=== PATIENT | female | born 1975 | race Caucasian/White ===

== ENCOUNTER 2021-01-19 12:02 | Emergency (ER) | payer SELFPAY | END 2021-01-19 12:59 | disposition left against medical advice (07) | LOC: ER 12:05 | DX: R06.02 Shortness of breath (principal) ==

== ENCOUNTER 2022-01-02 11:06 | Emergency (ER) | payer MEDICAID ==
[~2022-01-02] VITALS: Ht 160 cm; Wt 54.4 kg
--- NOTE | 2022-01-02 11:47 | ED General ---
General Stated Complaint: CHILLS/FATIGUE/HAIR FALLING OUT/IRR HEART RATE Source of Information: Patient Exam Limitations: No Limitations History of Present Illness Date Seen by Provider: Jan 02, 2022 Time Seen by Provider: 11:28 Initial Comments Patient is a 46-year-old otherwise healthy female who presents to the emergency department today with a chief complaint of feeling increased fatigue and weakness over the course of the last 2 weeks, profound chilling/feeling perpetually cold, hair falling out in clumps and very slow heart rate. Patient states last night she felt like her heartbeat was very very slow she became more concerned and decided to come to the emergency room this morning for evaluation. She does not currently have a primary care doctor if she is waiting for insurance to kick in as of January 21. She denies any recent fevers, chills, URI symptoms. She is COVID vaccinated, Moderna, second shot was in September 2021. No known Covid positive contacts recently. She states she feels like her breasts are a little "shallow". Not necessarily short of breath. No chest pain, no abdominal pain, nausea vomiting or diarrhea. She states she still has 1 bowel movement a day whereas normally she might have 2. No black or bloody s tools. No blood in her urine. No abnormal vaginal discharge. She is status post partial hysterectomy, ovaries were left. She was told by a provider about a year ago that she was in menopause. She does not take any kvnu-gxy-lbbaclv supplements. She does use a protein powder daily that she has been on for 5 years. She thinks her father has a history of some thyroid disease. All other review of systems reviewed and negative except as stated Timing/Duration: Other (2 weeks) Severity: Moderate Associated Systoms: Malaise, Weakness Allergies and Home Medications Allergies Coded Allergies: Sulfa (Sulfonamide Antibiotics) (Verified Allergy, Unknown, 01/02/22) Patient Home Medication List Home Medication List Reviewed: Yes Review of Systems Review of Systems Constitutional: chills (feels "cold") EENTM: no symptoms reported Respiratory: no symptoms reported Cardiovascular: no symptoms reported Gastrointestinal: no symptoms reported Genitourinary: no symptoms reported : No (Hyst) Musculoskeletal: no symptoms reported Skin: change in hair/nails ("hair is falling out in clumps"); No dryness, No pruritus, No rash Psychiatric/Neurological: Anxiety (about health) All Other Systems Reviewed Negative Unless Noted: Yes Physical Exam Vital Signs Vital Signs - First Documented 01/02/22 11:19 Pulse 75 Resp 16 B/P (MAP) 122/90 (101) Pulse Ox 99 O2 Delivery Room Air Capillary Refill : Height, Weight, BMI Height: '" Weight: lbs. oz. kg; BMI Method: General Appearance: No Apparent Distress, WD/WN, Thin Eyes: Bilateral Eye Normal Inspection, Bilateral Eye PERRL, Bilateral Eye EOMI HEENT: PERRL/EOMI, Pharynx Normal, Moist Mucous Membranes Neck: Full Range of Motion, Normal Inspection, Non Tender, Supple (no appreciable thyroid masses) Respiratory: Lungs Clear (100% room air), Normal Breath Sounds, No Accessory Muscle Use, No Respiratory Distress Cardiovascular: Regular Rate, Rhythm Gastrointestinal: Normal Bowel Sounds, Non Tender, Soft Extremity: Normal Capillary Refill, Normal Inspection, Normal Range of Motion, Non Tender, No Calf Tenderness, No Pedal Edema (no pre-tibial edema) Neurologic/Psychiatric: Alert, Oriented x3, No Motor/Sensory Deficits, Normal Mood/Affect, diagnostic cardiac sonographer II-XII Norm as Tested Skin: Normal Color, Warm/Dry, Other (no skin texture changes, rashes) Progress/Results/Core Measures Suspected Sepsis SIRS Temperature: Pulse: Respiratory Rate: Laboratory Tests 01/02/22 12:09: White Blood Count 3.7L Blood Pressure / Mean: Laboratory Tests 01/02/22 12:09: Creatinine 0.64, Platelet Count 205, Total Bilirubin 0.7 Results/Orders Lab Results Laboratory Tests Test 01/02/22 12:09 Range/Units White Blood Count 3.7 L 4.3-11.0 10^3/uL Red Blood Count 4.71 3.80-5.11 10^6/uL Hemoglobin 12.9 11.5-16.0 g/dL Hematocrit 39 35-52 % Mean Corpuscular Volume 83 80-99 fL Mean Corpuscular Hemoglobin 27 25-34 pg Mean Corpuscular Hemoglobin Concent 33 32-36 g/dL Red Cell Distribution Width 12.4 10.0-14.5 % Platelet Count 205 130-400 10^3/uL Mean Platelet Volume 10.7 9.0-12.2 fL Immature Granulocyte % (Auto) 0 % Neutrophils (%) (Auto) 57 42-75 % Lymphocytes (%) (Auto) 33 12-44 % Monocytes (%) (Auto) 8 0-12 % Eosinophils (%) (Auto) 2 0-10 % Basophils (%) (Auto) 1 0-10 % Neutrophils # (Auto) 2.1 1.8-7.8 10^3/uL Lymphocytes # (Auto) 1.2 1.0-4.0 10^3/uL Monocytes # (Auto) 0.3 0.0-1.0 10^3/uL Eosinophils # (Auto) 0.1 0.0-0.3 10^3/uL Basophils # (Auto) 0.0 0.0-0.1 10^3/uL Immature Granulocyte # (Auto) 0.0 0.0-0.1 10^3/uL Sodium Level 139 135-145 MMOL/L Potassium Level 4.2 3.6-5.0 MMOL/L Chloride Level 106 98-107 MMOL/L Carbon Dioxide Level 23 21-32 MMOL/L Anion Gap 10 5-14 MMOL/L Blood Urea Nitrogen 5 L 7-18 MG/DL Creatinine 0.64 0.60-1.30 MG/DL Estimat Glomerular Filtration Rate 112 BUN/Creatinine Ratio 8 Glucose Level 100 70-105 MG/DL Calcium Level 9.2 8.5-10.1 MG/DL Corrected Calcium 9.0 8.5-10.1 MG/DL Total Bilirubin 0.7 0.1-1.0 MG/DL Aspartate Amino Transf (AST/SGOT) 15 5-34 U/L Alanine Aminotransferase (ALT/SGPT) 9 0-55 U/L Alkaline Phosphatase 59 40-136 U/L C-Reactive Protein High Sensitivity 0.14 0.00-0.50 MG/DL Total Protein 7.5 6.4-8.2 GM/DL Albumin 4.3 3.2-4.5 GM/DL Thyroid Stimulating Hormone (TSH) 0.14 L 0.35-4.94 UIU/ML Free Thyroxine 0.87 0.70-1.48 NG/DL My Orders Orders - CAMRYN VILLAVICENCIO MD Cbc With Automated Diff (01/02/22 11:42) Comprehensive Metabolic Panel (01/02/22 11:42) Thyroid Stimulating Hormone (01/02/22 11:42) Triiodothryonine T3 Free (01/02/22 11:42) Free T4 (Free Thyroxine) (01/02/22 11:42) Hs C Reactive Protein (01/02/22 11:42) Vital Signs/I&O 01/02/22 11:19 Pulse 75 Resp 16 B/P (MAP) 122/90 (101) Pulse Ox 99 O2 Delivery Room Air Capillary Refill : Progress Note : Time: 14:11 Progress Note Patient seen and evaluated, basic laboratory studies including thyroid functio obtained. All of her labs are within normal limits, free T3 is a send out lab. I do not expect that to be elevated indicating hyperthyroidism. Based on her clinical complaints. I had a long discussion with the patient regarding recent stressors which may be contributing to depressive symptoms causing her feelings of "coldness", fatigue, weakness and generalized malaise. She has had quite a stressful last year and a half moving several of her 7 kids and herself from [place]. She is quite unhappy with her job currently, her children are moving out her youngest one is 19 and just about to buy a house and move out on his own as well. She laments not having a social network, close friend group, activities to enjoy. She is not as happy with her move as she had hoped she would be. She is planning on a follow-up appointment to further investigate the symptoms with her primary care after January 21. I have advised her to take some gnau-qay-udnlpov biotin for her hair loss as well as some B vitamins. Recommended good nutrition and hydration. Advised her to allow herself some nando as she is probably still transitioning and acclimating to this environment versus [place]. She seems very grateful for the "ear". All questions are sought and answered. Patient is stable for discharge. Departure Impression Primary Impression: Cold intolerance Additional Impression: Malaise Disposition: 01 HOME, SELF-CARE Condition: Stable Departure-Patient Inst. Decision time for Depature: 14:13 Referrals: NO,LOCAL PHYSICIAN (PCP/Family) Primary Care Physician Patient Instructions: LOCAL PHYSICIAN LIST Add. Discharge Instructions: Drink plenty of fluids and get good nutrition to help with hair loss. You might consider supplementing with a good B complex vitamin as well as some biotin. Follow-up with your primary care physician, go ahead and make an appointment as it may take some time once you get your insurance to get that scheduled. Return to the emergency room for any new, concerning or emergent complaints. CAMRYN VILLAVICENCIO MD Jan 02, 2022 11:47
[2022-01-02 12:24] LABS: BASOPHILS % (AUTO) 1 % (0-10); EOSINOPHILS # (AUTO) 0.1 10^3/uL (0.0-0.3); EOSINOPHILS % (AUTO) 2 % (0-10); HEMATOCRIT 39 % (35-52); HEMOGLOBIN 12.9 g/dL (11.5-16.0); LYMPHOCYTES # (AUTO) 1.2 10^3/uL (1.0-4.0); LYMPHOCYTES % (AUTO) 33 % (12-44); MEAN CORPUSCULAR HEMOGLOBIN 27 pg (25-34); MEAN CORPUSCULAR HGB CONC 33 g/dL (32-36); MEAN CORPUSCULAR VOLUME 83 fL (80-99); MEAN PLATELET VOLUME 10.7 fL (9.0-12.2); MONOCYTES # (AUTO) 0.3 10^3/uL (0.0-1.0); MONOCYTES % (AUTO) 8 % (0-12); NEUTROPHILS # (AUTO) 2.1 10^3/uL (1.8-7.8); NEUTROPHILS % (AUTO) 57 % (42-75); PLATELET COUNT 205 10^3/uL (130-400); WHITE BLOOD COUNT 3.7 10^3/uL (4.3-11.0)
[2022-01-02 12:35] LABS: ALBUMIN 4.3 GM/DL (3.2-4.5)
[2022-01-02 12:36] LABS: POTASSIUM 4.2 MMOL/L (3.6-5.0)
[2022-01-02 12:37] LABS: CALCIUM 9.2 MG/DL (8.5-10.1)
[2022-01-02 12:38] LABS: TOTAL PROTEIN 7.5 GM/DL (6.4-8.2)
[2022-01-02 12:40] LABS: BILIRUBIN,TOTAL 0.7 MG/DL (0.1-1.0)
[2022-01-02 12:42] LABS: CREATININE SERUM 0.64 MG/DL (0.60-1.30)
[2022-01-02 13:05] LABS: FREE T4 (FREE THYROXINE) 0.87 NG/DL (0.70-1.48)
[2022-01-02 14:50] VITALS: BP 118/70
== END 2022-01-02 14:50 | disposition home or self-care (01) ==
LOC: EDUNIT# 11:06 → ER 11:11
DX: T69.9XXA Effect of reduced temperature, unspecified, initial encounter (principal); R53.81 Other malaise; R53.1 Weakness; X31.XXXA Exposure to excessive natural cold, initial encounter
CPT/HCPCS: 36415; 80053; 84439; 84443; 84481; 85025; 86141; 99281

== ENCOUNTER 2022-05-11 08:26 | Emergency (ER) | payer MEDICAID ==
[~2022-05-11] VITALS: Ht 160 cm; Wt 52.2 kg
[2022-05-11 08:35] VITALS: BP 120/97
--- NOTE | 2022-05-11 08:57 | ED General ---
General Chief Complaint: General Problems/Pain Stated Complaint: FEELS COLD, FATIGUE, HAIRS FALLING OUT Nursing Triage Note: pt c/o fatige and cold- no n/v/d- going on 1 week Source of Information: Patient Exam Limitations: No Limitations History of Present Illness Date Seen by Provider: May 11, 2022 Time Seen by Provider: 08:44 Initial Comments Patient is a 46-year-old female who presents to the emergency department today with a chief complaint of feeling very fatigued and tired over the course of the last week with feeling very "cold" over the last 3 days. Patient states that she has not really had chills or fever. She feels a little short of breath secondary to her fatigue. She denies any sick contacts, she is COVID vaccinated with 1 booster. No runny nose, sore throat or earache. No chest pain. No productive cough. No abdominal pain, nausea, vomiting, diarrhea or urinary complaints. No swelling in her legs. Patient recently moved to [facility] does not have a local physician, her doctor is out in [place]. She does take "PHTHALIC ACID PURIFIER thyroid" at 90 mcg for hypothyroidism and has since she was a teenager. She states that she has not missed or skipped any doses. She is concerned about the storage of her thyroid hormone since her move. All other review of systems reviewed and negative except as stated Timing/Duration: 1 Week Severity: Moderate Associated Systoms: Malaise Allergies and Home Medications Allergies Coded Allergies: Sulfa (Sulfonamide Antibiotics) (Verified Allergy, Unknown, 01/02/22) Patient Home Medication List Home Medication List Reviewed: Yes Review of Systems Review of Systems Constitutional: see HPI EENTM: no symptoms reported Respiratory: short of breath Cardiovascular: no symptoms reported Gastrointestinal: no symptoms reported Genitourinary: no symptoms reported : No Musculoskeletal: no symptoms reported Skin: no symptoms reported Psychiatric/Neurological: No Symptoms Reported Hematologic/Lymphatic: Other (feels "cold") All Other Systems Reviewed Negative Unless Noted: Yes Past Fmkqeap-[id number]-Rumzdt Hx Patient Social History Tobacco Use?: No Substance use?: No Alcohol Use?: No Past Medical History Surgery/Hospitalization HX: appendix, heart ablation Physical Exam Vital Signs Vital Signs - First Documented 05/11/22 08:35 Temp 36.6 Pulse 72 Resp 20 B/P (MAP) 120/97 (105) Pulse Ox 100 O2 Delivery Room Air Capillary Refill : Height, Weight, BMI Height: '" Weight: lbs. oz. kg; 20.00 BMI Method: General Appearance: No Apparent Distress, WD/WN Eyes: Bilateral Eye Normal Inspection, Bilateral Eye PERRL, Bilateral Eye EOMI HEENT: PERRL/EOMI, TMs Normal, Pharynx Normal, Moist Mucous Membranes Neck: Normal Inspection, Non Tender, Supple Respiratory: Lungs Clear, Normal Breath Sounds, No Accessory Muscle Use, No Respiratory Distress Cardiovascular: Regular Rate, Rhythm, Normal Peripheral Pulses Gastrointestinal: Non Tender, Soft Extremity: Normal Capillary Refill, Normal Inspection, Non Tender, No Calf Tenderness, No Pedal Edema Neurologic/Psychiatric: Alert, Oriented x3, No Motor/Sensory Deficits, Normal Mood/Affect Skin: Normal Color, Warm/Dry Progress/Results/Core Measures Suspected Sepsis SIRS Temperature: Pulse: 72 Respiratory Rate: 20 Laboratory Tests 05/11/22 09:04: White Blood Count 4.1L Blood Pressure 120 /97 Mean: 105 Laboratory Tests 05/11/22 09:04: Creatinine 0.71, Platelet Count 172, Total Bilirubin 0.6 Results/Orders Lab Results Laboratory Tests Test 05/11/22 09:04 05/11/22 10:39 05/11/22 10:44 Range/Units White Blood Count 4.1 L 4.3-11.0 10^3/uL Red Blood Count 4.51 3.80-5.11 10^6/uL Hemoglobin 12.7 11.5-16.0 g/dL Hematocrit 37 35-52 % Mean Corpuscular Volume 83 80-99 fL Mean Corpuscular Hemoglobin 28 25-34 pg Mean Corpuscular Hemoglobin Concent 34 32-36 g/dL Red Cell Distribution Width 12.4 10.0-14.5 % Platelet Count 172 130-400 10^3/uL Mean Platelet Volume 10.6 9.0-12.2 fL Immature Granulocyte % (Auto) 0 % Neutrophils (%) (Auto) 54 42-75 % Lymphocytes (%) (Auto) 35 12-44 % Monocytes (%) (Auto) 7 0-12 % Eosinophils (%) (Auto) 4 0-10 % Basophils (%) (Auto) 1 0-10 % Neutrophils # (Auto) 2.2 1.8-7.8 10^3/uL Lymphocytes # (Auto) 1.4 1.0-4.0 10^3/uL Monocytes # (Auto) 0.3 0.0-1.0 10^3/uL Eosinophils # (Auto) 0.2 0.0-0.3 10^3/uL Basophils # (Auto) 0.0 0.0-0.1 10^3/uL Immature Granulocyte # (Auto) 0.0 0.0-0.1 10^3/uL Sodium Level 140 135-145 MMOL/L Potassium Level 4.3 3.6-5.0 MMOL/L Chloride Level 104 98-107 MMOL/L Carbon Dioxide Level 25 21-32 MMOL/L Anion Gap 11 5-14 MMOL/L Blood Urea Nitrogen 10 7-18 MG/DL Creatinine 0.71 0.60-1.30 MG/DL Estimat Glomerular Filtration Rate 107 BUN/Creatinine Ratio 14 Glucose Level 91 70-105 MG/DL Calcium Level 9.3 8.5-10.1 MG/DL Corrected Calcium 9.1 8.5-10.1 MG/DL Total Bilirubin 0.6 0.1-1.0 MG/DL Aspartate Amino Transf (AST/SGOT) 13 5-34 U/L Alanine Aminotransferase (ALT/SGPT) 16 0-55 U/L Alkaline Phosphatase 51 40-136 U/L Total Protein 7.1 6.4-8.2 GM/DL Albumin 4.3 3.2-4.5 GM/DL Thyroid Stimulating Hormone (TSH) 3.37 0.35-4.94 UIU/ML Free Thyroxine 0.71 0.70-1.48 NG/DL SARS-CoV-2 RNA (RT-PCR) Detected H Not Detecte D-Dimer <= 0.27 0.00-0.49 UG/ML My Orders Orders - CAMRYN VILLAVICENCIO MD Cbc With Automated Diff (05/11/22 08:54) Comprehensive Metabolic Panel (05/11/22 08:54) Thyroid Stimulating Hormone (05/11/22 08:54) Free T4 (Free Thyroxine) (05/11/22 08:54) Covid 19 Inhouse Test (05/11/22 10:28) Fibrin Degradation Products (05/11/22 10:28) Isolation Central Supply Req (05/11/22 10:28) Vital Signs/I&O 05/11/22 08:35 Temp 36.6 Pulse 72 Resp 20 B/P (MAP) 120/97 (105) Pulse Ox 100 O2 Delivery Room Air Capillary Refill : Blood Pressure Mean: 105 Progress Note #1: Time: 10:30 Progress Note Reevaluated the patient after initial labs had returned, they are normal, she is not anemic, her thyroid function is normal. Renal function liver function normal. She has no elevated white count. Vital signs are also reevaluated, her heart rate is normal in the 60s. Her oxygen is 99% on room air. Patient is concerned about a possible blood clot in her lungs secondary to all of her recent travel over the last couple of months back and forth from [place] to [place]. She adds that she is quite short of breath with daily activities and fatigue. She has no history of blood clot. I have tried to reassure her and offered a D-dimer to further screen for possible thromboembolism. We will also add a COVID test. Disposition after these studies are completed. (per review of the medical record, I saw her for very similar complaints back in Dec of this year with a negative work up) Progress Note #2: Time: 11:33 Progress Note D-dimer is negative, COVID test is positive. Patient is counseled on qu arantining criteria. I believe she is probably at the end of her illness as she has been symptomatic for greater than a week. She does not meet criteria for any type of treatment at this point. Her vital signs are stable. She has no ongoing complaints of chest pain or shortness of breath at rest. Oxygen is 96% on room air. All questions are sought and answered. Patient is stable for discharge. Departure Impression Primary Impression: COVID-19 Disposition: 01 HOME, SELF-CARE Condition: Stable Departure-Patient Inst. Decision time for Depature: 11:34 Referrals: [facility] [place] NO,LOCAL PHYSICIAN (PCP) Primary Care Physician Patient Instructions: COVID-19 (DC) Add. Discharge Instructions: Drink plenty of fluids to stay well-hydrated. Continue to monitor your symptoms if you have worsening shortness of breath, cough or high fever return to the emergency room for reevaluation. Follow-up with a primary care provider within the next month. You will need to mask a total of 10 days after symptom onset. CAMRYN VILLAVICENCIO MD May 11, 2022 08:57
[2022-05-11 09:08] LABS: BASOPHILS % (AUTO) 1 % (0-10); EOSINOPHILS # (AUTO) 0.2 10^3/uL (0.0-0.3); EOSINOPHILS % (AUTO) 4 % (0-10); HEMATOCRIT 37 % (35-52); HEMOGLOBIN 12.7 g/dL (11.5-16.0); LYMPHOCYTES # (AUTO) 1.4 10^3/uL (1.0-4.0); LYMPHOCYTES % (AUTO) 35 % (12-44); MEAN CORPUSCULAR HEMOGLOBIN 28 pg (25-34); MEAN CORPUSCULAR HGB CONC 34 g/dL (32-36); MEAN CORPUSCULAR VOLUME 83 fL (80-99); MEAN PLATELET VOLUME 10.6 fL (9.0-12.2); MONOCYTES # (AUTO) 0.3 10^3/uL (0.0-1.0); MONOCYTES % (AUTO) 7 % (0-12); NEUTROPHILS # (AUTO) 2.2 10^3/uL (1.8-7.8); NEUTROPHILS % (AUTO) 54 % (42-75); PLATELET COUNT 172 10^3/uL (130-400); WHITE BLOOD COUNT 4.1 10^3/uL (4.3-11.0)
[2022-05-11 09:19] LABS: ALBUMIN 4.3 GM/DL (3.2-4.5)
[2022-05-11 09:20] LABS: POTASSIUM 4.3 MMOL/L (3.6-5.0)
[2022-05-11 09:21] LABS: CALCIUM 9.3 MG/DL (8.5-10.1)
[2022-05-11 09:22] LABS: TOTAL PROTEIN 7.1 GM/DL (6.4-8.2)
[2022-05-11 09:24] LABS: BILIRUBIN,TOTAL 0.6 MG/DL (0.1-1.0)
[2022-05-11 09:26] LABS: CREATININE SERUM 0.71 MG/DL (0.60-1.30)
[2022-05-11 09:50] LABS: FREE T4 (FREE THYROXINE) 0.71 NG/DL (0.70-1.48)
== END 2022-05-11 11:50 | disposition home or self-care (01) ==
LOC: EDUNIT# 08:26 → ER 08:31
DX: U07.1 COVID-19 (principal)
CPT/HCPCS: 36415; 80053; 84439; 84443; 85025; 85379; 87636; 99283

== ENCOUNTER 2022-07-15 09:02 | Emergency (ER) | payer MEDICAID ==
[~2022-07-15] VITALS: Ht 160 cm; Wt 52.2 kg
--- NOTE | 2022-07-15 10:01 | ED Cardiac General ---
History of Present Illness General Chief Complaint: Cardiac/General Problems Stated Complaint: HEART PALPITATIONS, SHORTNESS OF BREATH, FATIGUE Nursing Triage Note: PT AMB TO RM 6 WITH C/O FEELING HEART PALPITATIONS LATELY AND FEELING MORE FATIGUED. PT STATES SHE ALSO FEELS COLD ALL THE TIME Source: patient Exam Limitations: no limitations History of Present Illness Date Seen by Provider: Jul 15, 2022 Time Seen by Provider: 09:30 Initial Comments Patient to the ER by private conveyance chief complaint that he was loading up her car at [employer] to her home to [place] and she started having a palpitation that was a low-speed, thumping pulsating in her chest feeling that her neck veins were distended. She says she has had these a couple times a day for the past 4 days. She has a history of Tbmxj-Dfnjfbkhp-Qgnhm status post ablation in 2009. She does not follow with a hvac refrigeration technician. She has a primary care doctor in [place]. She is hypothyroid on Synthroid. She just wanted to make sure that she was safe to go home. She is not having any chest pain nausea vomiting fevers chills cough shortness of air. She had COVID in November/December and has had some issues since then with fatigue and malaise. She has not had a TSH checked with her primary care doctor since then. Allergies and Home Medications Allergies Coded Allergies: Sulfa (Sulfonamide Antibiotics) (Verified Allergy, Unknown, 01/02/22) Patient Home Medication List Home Medication List Reviewed: Yes Levothyroxine Sodium (Levothyroxine Sodium) 100 Mcg Tablet, 100 MCG PO DAILY Prescribed by: DOYLE SINGH on 07/15/22 1223 Review of Systems Review of Systems Constitutional: No chills, No diaphoresis EENTM: No Blurred Vision, No Double Vision Respiratory: Denies Cough, Denies Shortness of Air Cardiovascular: Denies Chest Pain, Denies Edema Gastrointestinal: Denies Abdomen Distended, Denies Abdominal Pain Genitourinary: Denies Burning, Denies Discharge Musculoskeletal: No back pain, No joint pain Skin: No pruritus, No rash Psychiatric/Neurological: Denies Headache, Denies Numbness All Other Systems Reviewed Negative Unless Noted: Yes Past Hqfjmlg-Opcpzy-Dvhszc Hx Patient Social History Tobacco Use?: No Use of E-Cig and/or Vaping dev: No Substance use?: No Alcohol Use?: No Pt feels they are or have been: No Immunizations Up To Date Influenza Vaccine Up-to-Date: No; Not Current First/Initial COVID19 Vaccinat: YES Second COVID19 Vaccination Quang: YES Third COVID19 Vaccination Date: YES COVID19 Vaccine Pm Technician: UNKNOWN Past Medical History Surgery/Hospitalization HX: appendix, heart ablation, HYPOTHYROID, COVID- NOV 2021 Physical Exam Vital Signs Vital Signs - First Documented 07/15/22 09:13 Temp 36.6 Pulse 62 Resp 16 B/P (MAP) 133/90 (104) Capillary Refill : Height, Weight, BMI Height: '" Weight: lbs. oz. kg; 20.00 BMI Method: General Appearance: No Apparent Distress, WD/WN HEENT: PERRL/EOMI, Pharynx Normal, Moist Mucous Membranes Neck: Full Range of Motion, Normal Inspection Respiratory: Lungs Clear, Normal Breath Sounds, No Accessory Muscle Use, No Respiratory Distress Cardiovascular: Regular Rate, Rhythm, No Edema, No Murmur, Normal Peripheral Pulses Extremity: Normal Capillary Refill, Normal Inspection, No Pedal Edema Neurologic/Psychiatric: Alert, Oriented x3, Normal Mood/Affect Skin: Normal Color, Warm/Dry Progress/Results/Core Measures Results/Orders Lab Results Laboratory Tests Test 07/15/22 10:15 07/15/22 10:27 Range/Units Urine Color YELLOW Urine Clarity CLEAR Urine pH 8.0 5-9 Urine Specific [place] 1.010 L 1.016-1.022 Urine Protein NEGATIVE NEGATIVE Urine Glucose (UA) NEGATIVE NEGATIVE Urine Ketones NEGATIVE NEGATIVE Urine Nitrite NEGATIVE NEGATIVE Urine Bilirubin NEGATIVE NEGATIVE Urine Urobilinogen 0.2 < = 1.0 MG/DL Urine Leukocyte Esterase 1+ H NEGATIVE Urine RBC (Auto) NEGATIVE NEGATIVE Urine RBC NONE /HPF Urine WBC 0-2 /HPF Urine Squamous Epithelial Cells RARE /HPF Urine Crystals NONE /LPF Urine Bacteria MODERATE H /HPF Urine Casts NONE /LPF Urine Mucus NEGATIVE /LPF Urine Culture Indicated YES White Blood Count 3.7 L 4.3-11.0 10^3/uL Red Blood Count 4.34 3.80-5.11 10^6/uL Hemoglobin 12.1 11.5-16.0 g/dL Hematocrit 36 35-52 % Mean Corpuscular Volume 83 80-99 fL Mean Corpuscular Hemoglobin 28 25-34 pg Mean Corpuscular Hemoglobin Concent 33 32-36 g/dL Red Cell Distribution Width 12.1 10.0-14.5 % Platelet Count 165 130-400 10^3/uL Mean Platelet Volume 10.2 9.0-12.2 fL Immature Granulocyte % (Auto) 0 % Neutrophils (%) (Auto) 53 42-75 % Lymphocytes (%) (Auto) 36 12-44 % Monocytes (%) (Auto) 7 0-12 % Eosinophils (%) (Auto) 3 0-10 % Basophils (%) (Auto) 2 0-10 % Neutrophils # (Auto) 1.9 1.8-7.8 10^3/uL Lymphocytes # (Auto) 1.3 1.0-4.0 10^3/uL Monocytes # (Auto) 0.2 0.0-1.0 10^3/uL Eosinophils # (Auto) 0.1 0.0-0.3 10^3/uL Basophils # (Auto) 0.1 0.0-0.1 10^3/uL Immature Granulocyte # (Auto) 0.0 0.0-0.1 10^3/uL Sodium Level 140 135-145 MMOL/L Potassium Level 3.8 3.6-5.0 MMOL/L Chloride Level 105 98-107 MMOL/L Carbon Dioxide Level 27 21-32 MMOL/L Anion Gap 8 5-14 MMOL/L Blood Urea Nitrogen 12 7-18 MG/DL Creatinine 0.68 0.60-1.30 MG/DL Estimat Glomerular Filtration Rate 110 BUN/Creatinine Ratio 18 Glucose Level 94 70-105 MG/DL Calcium Level 9.0 8.5-10.1 MG/DL Corrected Calcium 9.1 8.5-10.1 MG/DL Magnesium Level 2.1 1.6-2.4 MG/DL Total Bilirubin 0.3 0.1-1.0 MG/DL Aspartate Amino Transf (AST/SGOT) 26 5-34 U/L Alanine Aminotransferase (ALT/SGPT) 27 0-55 U/L Alkaline Phosphatase 50 40-136 U/L Total Protein 6.7 6.4-8.2 GM/DL Albumin 3.9 3.2-4.5 GM/DL Thyroid Stimulating Hormone (TSH) 5.67 H 0.35-4.94 UIU/ML Free Thyroxine 0.63 L 0.70-1.48 NG/DL My Orders Orders - DOYLE SINGH Continuous Ekg Monitoring (07/15/22 09:09) Ekg Tracing (07/15/22 09:09) Ua Culture If Indicated (07/15/22 09:48) Urine Bedside (07/15/22 09:48) Cbc With Automated Diff (07/15/22 10:02) Comprehensive Metabolic Panel (07/15/22 10:02) Thyroid Stimulating Hormone (07/15/22 10:02) Magnesium (07/15/22 10:02) Free T4 (Free Thyroxine) (07/15/22 10:17) Urine Culture (07/15/22 10:15) Vital Signs/I&O 07/15/22 09:13 Temp 36.6 Pulse 62 Resp 16 B/P (MAP) 133/90 (104) Blood Pressure Mean: 104 Progress Progress Note #1: Time: 11:09 Progress Note EKG unremarkable, heart rate in the 60s but no dysrhythmia noted. We will keep her on the monitor and check some labs including TSH and free T4. If these things are okay we can give her a referral on to cardiology for follow-up since she does not follow with a hvac refrigeration technician anymore. Progress Note #2: Time: 12:20 Progress Note She is on 90 mcg of Synthroid so were going to increase her to 100 mcg. She states she takes it religiously. We will give her a referral on to cardiology for follow-up and encouraged her to follow-up with primary care in a month or 2 to repeat labs as necessary. Initial ECG Impression Date: Jul 15, 2022 Initial ECG Impression Time: 09:18 Initial ECG Rate: 60 Initial ECG Rhythm: Normal Sinus Initial ECG Intervals: Normal Initial ECG Impression: Normal, Nonspecific Changes Initial ECG Comparisson: No Previous ECG Available Comment Normal sinus rhythm within interventricular conduction delay but no clinically relevant ST elevation or depression or other dysrhythmia. Departure Impression Primary Impression: Palpitations with regular cardiac rhythm Additional Impression: Hypothyroidism (acquired) Disposition: 01 HOME, SELF-CARE Condition: Stable Departure-Patient Inst. Decision time for Depature: 12:21 Referrals: NO,LOCAL PHYSICIAN (PCP) Primary Care Physician HERMAN ÁLVAREZ JR, MD Patient Instructions: Palpitations (DC), Hypothyroidism (Underactive Thyroid) Add. Discharge Instructions: Make a follow-up appointment with Dr. Álvarez by calling for an appointment. Return to the nearest ER if you are having chest pain, shortness of air or other worrisome symptoms. Increase your Synthroid to the 100 mcg daily dose. We sent the prescription to your pharmacy. Follow-up with your primary care doctor in 1 to 2 months to have labs rechecked as necessary. All discharge instructions reviewed with patient and/or family. Voiced understanding. Scripts Levothyroxine Sodium (Levothyroxine Sodium) 100 Mcg Tablet 100 MCG PO DAILY for 30 Days, #30 TAB 0 Refills Prov: DOYLE SINGH 07/15/22 Copy Copies To 1: HERMAN ÁLVAREZ JR, MD WELLER, TITUS J Jul 15, 2022 10:01
[2022-07-15 10:23] LABS: BILIRUBIN,URINE NEGATIVE (NEGATIVE); CLARITY,URINE CLEAR; COLOR,URINE YELLOW; GLUCOSE, URINE (UA) NEGATIVE (NEGATIVE); KETONES,URINE NEGATIVE (NEGATIVE); LEUKOCYTE ESTERASE ,URINE 1+ (NEGATIVE); NITRITE,URINE NEGATIVE (NEGATIVE); PROTEIN,URINE NEGATIVE (NEGATIVE)
[2022-07-15 10:35] LABS: WBC,URINE 0-2 /HPF
[2022-07-15 10:36] LABS: BACTERIA,URINE MODERATE /HPF; SQUAMOUS EPITHELIAL CELL,UR RARE /HPF
[2022-07-15 10:46] LABS: BASOPHILS # (AUTO) 0.1 10^3/uL (0.0-0.1); BASOPHILS % (AUTO) 2 % (0-10); EOSINOPHILS # (AUTO) 0.1 10^3/uL (0.0-0.3); EOSINOPHILS % (AUTO) 3 % (0-10); HEMATOCRIT 36 % (35-52); HEMOGLOBIN 12.1 g/dL (11.5-16.0); LYMPHOCYTES # (AUTO) 1.3 10^3/uL (1.0-4.0); LYMPHOCYTES % (AUTO) 36 % (12-44); MEAN CORPUSCULAR HEMOGLOBIN 28 pg (25-34); MEAN CORPUSCULAR HGB CONC 33 g/dL (32-36); MEAN CORPUSCULAR VOLUME 83 fL (80-99); MEAN PLATELET VOLUME 10.2 fL (9.0-12.2); MONOCYTES # (AUTO) 0.2 10^3/uL (0.0-1.0); MONOCYTES % (AUTO) 7 % (0-12); NEUTROPHILS # (AUTO) 1.9 10^3/uL (1.8-7.8); NEUTROPHILS % (AUTO) 53 % (42-75); PLATELET COUNT 165 10^3/uL (130-400); WHITE BLOOD COUNT 3.7 10^3/uL (4.3-11.0)
[2022-07-15 10:58] LABS: ALBUMIN 3.9 GM/DL (3.2-4.5); POTASSIUM 3.8 MMOL/L (3.6-5.0)
[2022-07-15 11:00] LABS: TOTAL PROTEIN 6.7 GM/DL (6.4-8.2)
[2022-07-15 11:02] LABS: BILIRUBIN,TOTAL 0.3 MG/DL (0.1-1.0)
[2022-07-15 11:04] LABS: CREATININE SERUM 0.68 MG/DL (0.60-1.30)
[2022-07-15 11:07] LABS: MAGNESIUM 2.1 MG/DL (1.6-2.4)
[2022-07-15 11:28] LABS: FREE T4 (FREE THYROXINE) 0.63 NG/DL (0.70-1.48)
[2022-07-15] MEDS ORDERED: LEVO100T7 PO (12:23)
[2022-07-15 12:36] VITALS: BP 109/76
== END 2022-07-15 12:38 | disposition home or self-care (01) ==
LOC: EDUNIT# 09:02 → ER 09:08
DX: R00.2 Palpitations (principal); E03.9 Hypothyroidism, unspecified; Z86.79 Personal history of other diseases of the circulatory system; Z79.890 Hormone replacement therapy
CPT/HCPCS: 36415; 80053; 81000; 83735; 84439; 84443; 84703; 85025; 87077; 87088; 93005

== ENCOUNTER 2022-09-11 17:15 | Emergency (ER) | payer MEDICAID ==
[~2022-09-11] VITALS: Ht 160 cm; Wt 49.0 kg
[~2022-09-11 17:15] MED LIST: LEVO100T7 PO
[2022-09-11 18:29] LABS: BASOPHILS # (AUTO) 0.1 10^3/uL (0.0-0.1); BASOPHILS % (AUTO) 1 % (0-10); EOSINOPHILS # (AUTO) 0.1 10^3/uL (0.0-0.3); EOSINOPHILS % (AUTO) 2 % (0-10); HEMATOCRIT 36 % (35-52); HEMOGLOBIN 12.4 g/dL (11.5-16.0); LYMPHOCYTES # (AUTO) 1.7 10^3/uL (1.0-4.0); LYMPHOCYTES % (AUTO) 29 % (12-44); MEAN CORPUSCULAR HEMOGLOBIN 28 pg (25-34); MEAN CORPUSCULAR HGB CONC 35 g/dL (32-36); MEAN CORPUSCULAR VOLUME 82 fL (80-99); MEAN PLATELET VOLUME 10.9 fL (9.0-12.2); MONOCYTES # (AUTO) 0.4 10^3/uL (0.0-1.0); MONOCYTES % (AUTO) 7 % (0-12); NEUTROPHILS # (AUTO) 3.4 10^3/uL (1.8-7.8); NEUTROPHILS % (AUTO) 61 % (42-75); PLATELET COUNT 174 10^3/uL (130-400); WHITE BLOOD COUNT 5.7 10^3/uL (4.3-11.0)
[2022-09-11 18:35] LABS: BILIRUBIN,URINE NEGATIVE (NEGATIVE); CLARITY,URINE CLEAR; COLOR,URINE YELLOW; GLUCOSE, URINE (UA) NEGATIVE (NEGATIVE); KETONES,URINE NEGATIVE (NEGATIVE); LEUKOCYTE ESTERASE ,URINE 1+ (NEGATIVE); NITRITE,URINE NEGATIVE (NEGATIVE); PROTEIN,URINE NEGATIVE (NEGATIVE)
[2022-09-11 18:41] LABS: ALBUMIN 4.1 GM/DL (3.2-4.5); CHLORIDE 103 MMOL/L (98-107); POTASSIUM 3.5 MMOL/L (3.6-5.0); SODIUM 138 MMOL/L (135-145)
[2022-09-11 18:42] LABS: CALCIUM 9.1 MG/DL (8.5-10.1)
[2022-09-11 18:43] LABS: GLUCOSE 99 MG/DL (70-105); TOTAL PROTEIN 6.8 GM/DL (6.4-8.2)
[2022-09-11 18:45] LABS: BILIRUBIN,TOTAL 0.4 MG/DL (0.1-1.0); CARBON DIOXIDE 27 MMOL/L (21-32)
[2022-09-11 18:47] LABS: ALKALINE PHOSPHATASE 49 U/L (40-136); CREATININE SERUM 0.76 MG/DL (0.60-1.30); GFR ESTIMATED 99
[2022-09-11 18:48] LABS: BUN/CREATININE RATIO 13
[2022-09-11 18:50] LABS: ALANINE AMINOTRANSFERASE 16 U/L (0-55); MAGNESIUM 2.1 MG/DL (1.6-2.4)
[2022-09-11 18:54] LABS: BACTERIA,URINE NEGATIVE /HPF; WBC,URINE 0-2 /HPF
[2022-09-11 18:55] LABS: AMPHETAMINE SCREEN, URINE NEGATIVE (NEGATIVE); BARBITURATE SCREEN URINE NEGATIVE (NEGATIVE); BENZODIAZEPINES SCREEN URINE NEGATIVE (NEGATIVE); CANNABINOID SCREEN, URINE NEGATIVE (NEGATIVE); COCAINE SCREEN URINE NEGATIVE (NEGATIVE); METHADONE STAT NEGATIVE (NEGATIVE); OPIATE SCREEN URINE NEGATIVE (NEGATIVE); OXYCODONE STAT NEGATIVE (NEGATIVE); PROPOXYPHENE STAT NEGATIVE (NEGATIVE); TRICYCLIC ANTIDEPRESSANTS SCRE NEGATIVE (NEGATIVE)
[2022-09-11 18:56] VITALS: BP_SYST 113; BP_SYST 116; BP_DIAS 77; BP_DIAS 80; BP_DIAS 81
[2022-09-11 19:14] LABS: TSH (THYROID ANALYZER) 0.61 UIU/ML (0.35-4.94)
[2022-09-11] MEDS ORDERED: IOHEXOL 350 MG/ML 100 ML (OMNIPAQUE 350) VIAL IV ONE (19:15)
[2022-09-11] MEDS ORDERED: CATHETER FLUSH 10 ML SYR IV PRN (19:15)
[2022-09-11] MEDS ORDERED: NS 100 ML (IVPB) BAG IV ONE (19:15)
--- NOTE | 2022-09-11 19:30 | Diagnostic Imaging Report ---
Clinical Indication: Patient with syncope. Exam: Axial CT scan of the brain without IV contrast with coronal and sagittal reformatted images. Auto Exposure Controls were utilized during the CT exam to meet ALARA standards for radiation dose reduction. Comparison: None Findings: There is no evidence of acute cerebral infarct, intracranial hemorrhage, or gross mass effect. The brain parenchymal volume appears appropriate for patient's age. There is normal patrick-white matter distinction. There is no significant midline shift or herniation. There is no evidence of hydrocephalus. The basal cisterns are unremarkable. The skull, extracranial soft tissue, and orbits are unremarkable. The paranasal sinuses are unremarkable. Temporal bones show no significant abnormality. Impression: Unremarkable CT scan of the brain. Dictated by: Dictated on workstation # [id number]
--- NOTE | 2022-09-11 19:36 | Diagnostic Imaging Report ---
EXAMINATION: Chest 1 view HISTORY: Syncope COMPARISON: None available. FINDINGS: The lungs are clear without edema or pneumonia. No pleural effusion or pneumothorax. Heart size is normal. IMPRESSION: 1. Clear lungs. Dictated by: Dictated on workstation # [id number]
--- NOTE | 2022-09-11 20:21 | ED General ---
General Chief Complaint: Dizziness/Syncope Stated Complaint: PASSED OUT AND FELL,TROUBLE SLEEPING,HOT FLASHES Nursing Triage Note: PT AMB TO TRIAGE PT CO OF SYNCOPAL EPISODE APPROX 30MIN PRIOR TO COMING TO ED Source of Information: Patient (GIVES MUCH INCONSISTENT INFORMATION) History of Present Illness Date Seen by Provider: Sep 11, 2022 Time Seen by Provider: 17:53 Initial Comments PT ARRIVES VIA POV, WITH HER FATHER C/O SYNCOPAL EPISODE STATES SHE WAS GOING TO GET GROCERIES, AND HAD JUST GOTTEN OUT OF HER VEHICLE AND WAS STARTING TO WALK AND SHE BEGAN TO "FEEL FUNNY" STATES HER HEART STARTED RACING, SHE GOT SWEATY, MOUTH STARTED WATERING. SHE THEN LOWERED HERSELF TO HER KNEES, AND THEN HER DAD CAUGHT HER. SHE "CAME TO" A COUPLE OF SECONDS LATER, WITH HIM SHAKING HER AWAKE. SHE DENIES ANY INJURY AT ALL WHEN SHE "CAME TO" SHE FELT A LITTLE DISORIENTED, AND HAD A HEADACHE--THOSE SYMPTOMS RESOLVED PRIOR TO ARRIVAL. SHE HAS BEEN HAVING DAILY HEADACHES FOR A LONG TIME STATES SHE FEELS A LITTLE "STRANGE--OFF BALANCE" NO CHEST PAIN AT ANY TIME NO SHORTNESS OF BREATH NO NAUSEA/VOMITING NO ABDOMINAL PAIN NO FEVER OR RECENT ILLNESS NO PARESTHESIAS OR MOTOR DEFICITS. SHE HAS ONGOING BLURRY VISION FOR "QUITE AWHILE" --HAS NEVER GONE TO THE EYE DR OR SEEN ANYONE ABOUT THIS. HER VISION IS NO DIFFERENT TODAY IN ANY WAY. STATES SHE HAS HAD THIS HAPPEN BEFORE--FULL SYNCOPAL EPISODE, AND WAS DX WITH THYROID PROBLEMS AND WAS STARTED ON THYROID MEDICATION STATES SHE WAS "JUST STARTED ON THYROID MEDICINE FOR THE FIRST TIME-2 1/2 WEEKS AGO" SHE STATES SINCE SHE STARTED TAKING THE MEDICATION, SHE HAS BEEN HAVING MULTIPLE EPISODES OF THE SAME SYMPTOMS. BUT NEVER FULLY PASSED OUT --STATES FOR THE LAST SEVERAL DAYS SHE HAS BEEN HAVING EPISODES OF SWEATS, NEAR-SYNCOPE, HEART RACING, AND NAUSEA. STATES SHE WAS GARDENING THIS AFTERNOON, JUST BEFORE GOING TO THE STORE, AND DID NOT HAVE ANY PROBLEMS AT THAT TIME. PT DENIES ANY CAFFEINE USE OR ANY OTHER MEDICATIONS EXCEPT THYROID MEDICATION DENIES SMOKING, ALCOHOL OR DRUG USE PT DOES HAVE HISTORY OF [id number] SYNDROME AND HAD A CARDIAC ABL ATION IN 2009. HAS NOT SEEN A LEAD BLENDER FOR A FEW YEARS. SEE OLD CHARTS FOR DETAILS FROM PREVIOUS VISITS. PCP; UNKNOWN DR AT [facility] STATES SHE MOVED HERE 2 YEARS AGO FROM [place] Allergies and Home Medications Allergies Coded Allergies: Sulfa (Sulfonamide Antibiotics) (Verified Allergy, Unknown, 01/02/22) Patient Home Medication List Home Medication List Reviewed: Yes Levothyroxine Sodium (Levothyroxine Sodium) 100 Mcg Tablet, 100 MCG PO DAILY Prescribed by: DOYLE SINGH on 07/15/22 1223 Review of Systems Review of Systems Constitutional: see HPI EENTM: see HPI Respiratory: no symptoms reported Cardiovascular: No chest pain, No edema; palpitations, syncope; No vascular heart diseas Gastrointestinal: see HPI Genitourinary: no symptoms reported : No Musculoskeletal: no symptoms reported Skin: no symptoms reported Psychiatric/Neurological: See HPI Hematologic/Lymphatic: No Symptoms Reported Immunological/Allergic: no symptoms reported Past Tixsrxn-Ahofng-Mjitkv Hx Patient Social History Tobacco Use?: No Smoking Status: Never a Smoker Smokeless Tobacco Frequency: Never a User Use of E-Cig and/or Vaping Yeison: Never a User Substance use?: No Alcohol Use?: No Pt feels they are or have been: No Immunizations Up To Date First/Initial COVID19 Vaccinat: YES Second COVID19 Vaccination Quang: YES Third COVID19 Vaccination Date: YES Past Medical History Surgery/Hospitalization HX: appendix, heart ablation, HYPOTHYROID, COVID- NOV 2021 TESTED POSITIVE FOR COVID 05/11/22 Surgeries: Yes Appendectomy, Cardiac, Hysterectomy Respiratory: Yes (COVID-19 NOVEMBER AND APRIL 2022--NO HOSPITALIZATION OR TREATMENT) Cardiac: Yes (WPW-S/P ABLATION) Irregular Heartbeat Neurological: Yes Headaches /Migraines : No Reproductive Disorders: Yes Female Reproductive Disorders: Menstrual Problems 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, 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 Genitourinary: No Gastrointestinal: Yes (APPENDECTOMY) Musculoskeletal: No Endocrine: Yes Hypothyroidsim HEENT: No Cancer: No Psychosocial: No Integumentary: No Blood Disorders: No Family Medical History SOCIAL HISTORY: -SMOKING-NEVER -ETOH-NEVER -DRUGS-NEVER PAST SURGICAL HISTORY: -1992--APPENDECTOMY -2007--HYSTERECTOMY WITH INTACT OVARIES -2009--CARDIAC ABLATION FOR SUPBV-[id number]-VQLWH SYNDROME ALL OF THESE SURGERIES WERE DONE IN [place] Physical Exam Vital Signs Vital Signs - First Documented 09/11/22 09/11/22 17:20 20:36 Temp 36.9 Pulse 76 Resp 18 B/P (MAP) 120/81 (94) Pulse Ox 97 O2 Delivery Room Air Capillary Refill : Less Than 3 Seconds Height, Weight, BMI Height: '" Weight: lbs. oz. kg; 19.00 BMI Method: General Appearance: No Apparent Distress, WD/WN, Anxious, Thin (VERY THIN), Other (DOES NOT APPEAR ILL OR TO BE IN ANY DISCOMFORT OR DISTRESS, OR TO BE POST-ICTAL. ) HEENT: PERRL/EOMI, Normal ENT Inspection, Moist Mucous Membranes Neck: Full Range of Motion, Normal Inspection, Non Tender, Supple; No Carotid Bruit, No JVD Respiratory: Normal Breath Sounds, No Accessory Muscle Use, No Respiratory Distress Cardiovascular: Regular Rate, Rhythm, No Edema, No JVD, No Murmur, Normal Peripheral Pulses Gastrointestinal: Non Tender, Soft Back: Normal Inspection Extremity: Normal Capillary Refill, Normal Inspection, Normal Range of Motion, Non Tender, No Calf Tenderness, No Pedal Edema Neurologic/Psychiatric: Alert, Oriented x3, No Motor/Sensory Deficits, burlap worker II- XII Norm as Tested; No Abnormal Cerebellar Tests Skin: Normal Color, Warm/Dry, Tattoos/Piercings (EXTENSIVE TATTOOS) Progress/Results/Core Measures Suspected Sepsis SIRS Temperature: Pulse: 60 Respiratory Rate: 18 Laboratory Tests 09/11/22 18:15: White Blood Count 5.7 Blood Pressure 113 /77 Mean: 89 Laboratory Tests 09/11/22 18:15: Creatinine 0.76, Platelet Count 174, Total Bilirubin 0.4 Results/Orders Lab Results Laboratory Tests Test 09/11/22 18:15 09/11/22 18:24 Range/Units White Blood Count 5.7 4.3-11.0 10^3/uL Red Blood Count 4.38 3.80-5.11 10^6/uL Hemoglobin 12.4 11.5-16.0 g/dL Hematocrit 36 35-52 % Mean Corpuscular Volume 82 80-99 fL Mean Corpuscular Hemoglobin 28 25-34 pg Mean Corpuscular Hemoglobin Concent 35 32-36 g/dL Red Cell Distribution Width 11.9 10.0-14.5 % Platelet Count 174 130-400 10^3/uL Mean Platelet Volume 10.9 9.0-12.2 fL Immature Granulocyte % (Auto) 0 % Neutrophils (%) (Auto) 61 42-75 % Lymphocytes (%) (Auto) 29 12-44 % Monocytes (%) (Auto) 7 0-12 % Eosinophils (%) (Auto) 2 0-10 % Basophils (%) (Auto) 1 0-10 % Neutrophils # (Auto) 3.4 1.8-7.8 10^3/uL Lymphocytes # (Auto) 1.7 1.0-4.0 10^3/uL Monocytes # (Auto) 0.4 0.0-1.0 10^3/uL Eosinophils # (Auto) 0.1 0.0-0.3 10^3/uL Basophils # (Auto) 0.1 0.0-0.1 10^3/uL Immature Granulocyte # (Auto) 0.0 0.0-0.1 10^3/uL D-Dimer 0.30 0.00-0.49 UG/ML Sodium Level 138 135-145 MMOL/L Potassium Level 3.5 L 3.6-5.0 MMOL/L Chloride Level 103 98-107 MMOL/L Carbon Dioxide Level 27 21-32 MMOL/L Anion Gap 8 5-14 MMOL/L Blood Urea Nitrogen 10 7-18 MG/DL Creatinine 0.76 0.60-1.30 MG/DL Estimat Glomerular Filtration Rate 99 BUN/Creatinine Ratio 13 Glucose Level 99 70-105 MG/DL Calcium Level 9.1 8.5-10.1 MG/DL Corrected Calcium 9.0 8.5-10.1 MG/DL Magnesium Level 2.1 1.6-2.4 MG/DL Total Bilirubin 0.4 0.1-1.0 MG/DL Aspartate Amino Transf (AST/SGOT) 16 5-34 U/L Alanine Aminotransferase (ALT/SGPT) 16 0-55 U/L Alkaline Phosphatase 49 40-136 U/L Troponin I < 0.028 <0.028 NG/ML Total Protein 6.8 6.4-8.2 GM/DL Albumin 4.1 3.2-4.5 GM/DL TSH Elaine Testing 0.61 0.35-4.94 UIU/ML Serum Test, Qualitative NEGATIVE NEGATIVE Urine Color YELLOW Urine Clarity CLEAR Urine pH 7.0 5-9 Urine Specific [place] <=1.005 1.016-1.022 Urine Protein NEGATIVE NEGATIVE Urine Glucose (UA) NEGATIVE NEGATIVE Urine Ketones NEGATIVE NEGATIVE Urine Nitrite NEGATIVE NEGATIVE Urine Bilirubin NEGATIVE NEGATIVE Urine Urobilinogen 0.2 < = 1.0 MG/DL Urine Leukocyte Esterase 1+ H NEGATIVE Urine RBC (Auto) NEGATIVE NEGATIVE Urine RBC NONE /HPF Urine WBC 0-2 /HPF Urine Squamous Epithelial Cells NONE /HPF Urine Crystals NONE /LPF Urine Bacteria NEGATIVE /HPF Urine Casts NONE /LPF Urine Mucus NEGATIVE /LPF Urine Culture Indicated NO Urine Opiates Screen NEGATIVE NEGATIVE Urine Oxycodone Screen NEGATIVE NEGATIVE Urine Methadone Screen NEGATIVE NEGATIVE Urine Propoxyphene Screen NEGATIVE NEGATIVE Urine Barbiturates Screen NEGATIVE NEGATIVE Ur Tricyclic Antidepressants Screen NEGATIVE NEGATIVE Urine Phencyclidine Screen NEGATIVE NEGATIVE Urine Amphetamines Screen NEGATIVE NEGATIVE Urine Methamphetamines Screen NEGATIVE NEGATIVE Urine Benzodiazepines Screen NEGATIVE NEGATIVE Urine Cocaine Screen NEGATIVE NEGATIVE Urine Cannabinoids Screen NEGATIVE NEGATIVE My Orders Orders - SRAVANI LAROSE DO Ed Iv/Invasive Line Start (09/11/22 17:58) Ekg Tracing (09/11/22 17:58) Monitor-Rhythm Ecg Trace Only (09/11/22 17:58) Orthostatic Vital Signs (Adult (09/11/22 17:58) Cbc With Automated Diff (09/11/22 17:58) Comprehensive Metabolic Panel (09/11/22 17:58) Fibrin Degradation Products (09/11/22 17:58) Magnesium (09/11/22 17:58) Thyroid Analyzer (09/11/22 17:58) Ua Culture If Indicated (09/11/22 17:58) Troponin I Amelia (09/11/22 17:58) Drug Screen Stat (Urine) (09/11/22 17:58) Hcg,Qualitative Serum (09/11/22 17:58) Ct Head Wo (09/11/22 18:59) Chest 1 View, Ap/Pa Only (09/11/22 18:59) Vital Signs/I&O 09/11/22 09/11/22 09/11/22 17:20 18:56 20:36 Temp 36.9 36.5 Pulse 76 60 63 67 63 Resp 18 16 B/P (MAP) 120/81 (94) 113/77 (89) 110/78 116/80 (92) 116/81 (93) Pulse Ox 97 100 O2 Delivery Room Air Capillary Refill : Less Than 3 Seconds Blood Pressure Mean: 89 Progress Note : Progress Note UNEVENTFUL ER STAY PT HAD NO ARRHYTHMIAS OR ABNORMAL VITALS DURING ER STAY. ORTHOSTATICS NORMAL. PT HAD NO SYMPTOMS OF ANY KIND DURING ER STAY ON REVIEW OF PRIOR VISITS TO ER, PT HAS REPORTED THAT SHE HAS BEEN ON THYROID MEDICATION SINCE SHE WAS A TEENAGER, AND HAS LISTED AT EACH VISIT THAT SHE IS TAKING LEVOTHYROXINE. ON PRIOR VISITS SHE ALSO HAS STATED THAT SHE "JUST MOVED HERE" AND "WAITING FOR INSURANCE TO KICK IN"--ON HER VISIT HERE IN DECEMBER, SHE SAID IT WAS SUPPOSED TO "KICK IN" ON JANUARY 21. SHE REPORTS TO ME THAT SHE MOVED HERE 2 YEARS AGO AND SHE AGAIN REPORTS TO ME SHE IS "WAITING FOR INSURANCE TO KICK IN"--"IN SEPTEMBER" INITIALLY SHE STATES SHE DOES NOT HAVE ANY APPOINTMENTS SCHEDULED WITH ANYONE. LATER DURING ER STAY, SHE STATES THAT SHE HAS AN APPOINTMENT ON Thursday09/15/22 WITH AN UNKNOWN PROVIDER AT [facility] --THINKS IT IS TO DISCUSS MENOPAUSE AND HORMONE THERAPY. STATES SHE HAS NEVER BEEN ON HORMONE THERAPY SINCE SHE WENT THROUGH MENOPAUSE 5 YEARS AGO ( HAD HYSTERECTOMY IN 2007, BUT STILL HAS OVARIES) ON DISCUSSION OF CT CHEST ANGIOGRAM FOR FURTHER EVALUATION OF HER SYMPTOMS, PT AGREED TO TEST, AND REPEATEDLY DENIED THAT SHE HAS EVER HAD IV DYE OR CT SCAN BEFORE, AND IS NOT ALLERGIC TO SHELLFISH OR IODINE. WHEN PT WAS IN THE XRAY DEPT, SHE THEN REFUSED THE CT CHEST ANGIOGRAM AND REPORTED TO HYGIENE COORDINATOR THAT SHE HAS HAD IV DYE AND IT CAUSED PALPITATIONS. SHE NOW REPORTS THAT SHE HAD A P.E. 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 CUELLO, LEAD BLENDER. PT NEVER ATTEMPTED TO MAKE AN APPOINTMENT OR FOLLOW UP WITH ANY LEAD BLENDER INSTRUCTED AT THAT VISIT. ECG Initial ECG Impression Date: Sep 11, 2022 Initial ECG Impression Time: 18:49 Initial ECG Rate: 60 Initial ECG Rhythm: Normal Sinus Initial ECG Impression: Normal Diagnostic Imaging Comments CT HEAD--PER RADIOLOGIST REPORT AT 2017 Findings: There is no evidence of acute cerebral infarct, intracranial hemorrhage, or gross mass effect. The brain parenchymal volume appears appropriate for patient's age. There is normal patrick-white matter distinction. There is no significant midline shift or herniation. There is no evidence of hydrocephalus. The basal cisterns are unremarkable. The skull, extracranial soft tissue, and orbits are unremarkable. The paranasal sinuses are unremarkable. Temporal bones show no significant abnormality. Impression: Unremarkable CT scan of the brain Reviewed: Reviewed by Me Departure Impression Primary Impression: REPORTED SYNCOPAL EPISODE Additional Impression: Palpitations with regular cardiac rhythm Disposition: HOME, SELF-CARE Condition: Stable Departure-Patient Inst. Decision time for Depature: 20:18 Referrals: RADHA HOLLOWAY MD FACP [facility] Patient Instructions: Palpitations ED, Syncope (Fainting) (DC) Add. Discharge Instructions: HOME, REST TAKE YOUR MEDICATIONS PRESCRIBED FOLLOW UP WITH DR. HOLLOWAY, LEAD BLENDER, FOR FURTHER CARE--CALL IN THE MORNING TO SCHEDULE APPOINTMENT RETURN TO ER IF SYMPTOMS WORSEN NO DRIVING UNTIL YOU ARE RECHECKED AND CLEARED BY FOLLOW UP WITH [facility] [place] All discharge instructions reviewed with patient and/or family. Voiced understanding. SRAVANI LAROSE DO Sep 11, 2022 20:21
[2022-09-11 20:36] VITALS: BP 110/78
== END 2022-09-11 20:40 | disposition home or self-care (01) ==
LOC: EDUNIT# 17:15 → ER 17:18
DX: R55 Syncope and collapse (principal); R00.2 Palpitations; E03.9 Hypothyroidism, unspecified; Z86.16 Personal history of COVID-19; Z28.310 Unvaccinated for COVID-19
CPT/HCPCS: 36415; 70450; 71045; 80053; 80306; 81000; 83735; 84443; 84484; 84703; 85025; 85379; 93005; 93041

== ENCOUNTER 2023-02-10 13:21 | Emergency (ER) | payer MEDICAID ==
[~2023-02-10] VITALS: Ht 160 cm; Wt 52.2 kg
[2023-02-10 13:30] VITALS: BP 125/91
--- NOTE | 2023-02-10 14:19 | ED General ---
General Chief Complaint: General Problems/Pain Stated Complaint: CHILLS | WEAKNESS Nursing Triage Note: PT AMB TO RM 9 WITH COMPLAINT OF CHILLS, WEAKNESS, SLOW HR FOR ABOUT A WEEK. Source of Information: Patient, Old Records Exam Limitations: No Limitations (HERMAN WALEKR) History of Present Illness Date Seen by Provider: Feb 10, 2023 Time Seen by Provider: 13:33 Initial Comments Mrs. Marin is a 47 yo F with PMH of WPW corrected with ablation, hypo-thyroidism and early menopause who presents to the ED today with complaint of 1wk hx of worsening chills, weakness and low HR. She has not tried any Tylenol or other medication to alleviate her sx. She states that this morning she tried to "just push through it" by increasing her activity and felt even worse afterwards. She does endorse a slight headache, but denies N/V/F/D, dysuria or changes in hearing or vision. She states she is taking her thyroid medication regularly and also began hormone therapy 3wks ago as prescribed by her PCP Tere Jamison at [facility]. 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 Timing/Duration: 1 Week Severity: Mild Modifying Factors: improves with Rest Associated Systoms: Fever/Chills (Chills only, no fever), Headaches; No Nausea/Vomiting, No Shortness of Air; Weakness (HERMAN WALKER) Allergies and Home Medications Allergies Coded Allergies: Sulfa (Sulfonamide Antibiotics) (Verified Allergy, Unknown, 01/02/22) Patient Home Medication List Home Medication List Reviewed: Yes (CAMRYN VILLAVICENCIO MD) Levothyroxine Sodium (Levothyroxine Sodium) 100 Mcg Tablet, 100 MCG PO DAILY Prescribed by: DOYLE SINGH on 07/15/22 1223 Review of Systems Review of Systems Constitutional: chills; No fever; weakness EENTM: No hearing loss, No double vision, No eye pain, No vision loss, No mouth pain, No nose congestion, No throat pain Respiratory: No cough, No short of breath Cardiovascular: No chest pain, No palpitations Gastrointestinal: No abdominal pain, No diarrhea, No nausea, No vomiting Genitourinary: No dysuria Musculoskeletal: No back pain, No joint pain, No joint swelling, No muscle pain Skin: No change in color; change in hair/nails (hair loss); No dryness, No rash Psychiatric/Neurological: Headache; Denies Numbness, Denies Paresthesia, Denies Tremors; Weakness (HERMAN WALKER) Past Roqerie-Liewvy-Vxqcyv Hx Patient Social History Tobacco Use?: No Use of E-Cig and/or Vaping dev: No Substance use?: No Alcohol Use?: No Pt feels they are or have been: No (HERMAN WALKER) Immunizations Up To Date First/Initial COVID19 Vaccinat: YES Second COVID19 Vaccination Quang: YES Third COVID19 Vaccination Date: YES (HERMAN WALKER) Past Medical History Surgery/Hospitalization HX: appendix, heart ablation, HYPOTHYROID, COVID- NOV 2021 TESTED POSITIVE FOR COVID 05/11/22 Surgeries: Yes Appendectomy, Cardiac, Hysterectomy Respiratory: Yes (COVID-11 DECEMBER AND APRIL 2022--NO HOSPITALIZATION OR TREATMENT) Cardiac: Yes (WPW-S/P ABLATION) Irregular Heartbeat Neurological: Yes Headaches /Migraines Reproductive Disorders: Yes Female Reproductive Disorders: Menstrual Problems 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, Menopausal Genitourinary: No Gastrointestinal: Yes (APPENDECTOMY) Musculoskeletal: No Endocrine: Yes Hypothyroidsim HEENT: No Cancer: No Psychosocial: No Integumentary: No Blood Disorders: No (HERMAN WALKER) Family Medical History Cancer (Uncle - unknown what type of CA) SOCIAL HISTORY: -SMOKING-NEVER -ETOH-NEVER -DRUGS-NEVER PAST SURGICAL HISTORY: -1992--APPENDECTOMY -2007--HYSTERECTOMY WITH INTACT OVARIES -2009--CARDIAC ABLATION FOR [id number] SYNDROME ALL OF THESE SURGERIES WERE DONE IN [place] (HERMAN WALKER) Physical Exam Vital Signs Vital Signs - First Documented 02/10/23 13:30 Temp 36.3 Pulse 69 Resp 18 B/P (MAP) 125/91 (102) Pulse Ox 100 O2 Delivery Room Air (CAMRYN VILLAVICENCIO MD) Vital Signs Capillary Refill : Less Than 3 Seconds (HERMAN WALKER) Height, Weight, BMI Height: '" Weight: lbs. oz. kg; 20.00 BMI Method: General Appearance: No Apparent Distress, WD/WN Eyes: Bilateral Eye Normal Inspection, Bilateral Eye PERRL, Bilateral Eye EOMI HEENT: PERRL/EOMI, TMs Normal, Normal ENT Inspection, Pharynx Normal Neck: Full Range of Motion, Normal Inspection, Non Tender, Supple Respiratory: Chest Non Tender, Lungs Clear, Normal Breath Sounds, No Accessory Muscle Use, No Respiratory Distress Cardiovascular: Regular Rate, Rhythm, No Edema, No Gallop, No JVD, No Murmur, Normal Peripheral Pulses Gastrointestinal: Normal Bowel Sounds, No Organomegaly, No Pulsatile Mass, Non Tender, Soft Back: No CVA Tenderness, No Vertebral Tenderness Extremity: Normal Capillary Refill, Normal Inspection, Normal Range of Motion, Non Tender, No Calf Tenderness, No Pedal Edema Neurologic/Psychiatric: Alert, Oriented x3, No Motor/Sensory Deficits, Normal Mood/Affect, dairy nutritionist II-XII Norm as Tested Skin: Normal Color, Warm/Dry Lymphatic: No Adenopathy (HERMAN WALKER) Progress/Results/Core Measures Suspected Sepsis SIRS Temperature: Pulse: 69 Respiratory Rate: 18 Blood Pressure 125 /91 Mean: 102 (HERMAN WALKER) Results/Orders Lab Results Laboratory Tests Test 02/10/23 14:23 Range/Units SARS-CoV-2 RNA (RT-PCR) Not Detected Not Detecte (CAMRYN VILLAVICENCIO MD) My Orders Orders - CAMRYN VILLAVICENCIO MD Covid 19 Inhouse Test (02/10/23 14:20) Isolation Central Supply Req (02/10/23 14:20) (CAMRYN VILLAVICENCOI MD) Vital Signs/I&O 02/10/23 13:30 Temp 36.3 Pulse 69 Resp 18 B/P (MAP) 125/91 (102) Pulse Ox 100 O2 Delivery Room Air (CAMRYN VILLAVICENCIO MD) Vital Signs/I&O Capillary Refill : Less Than 3 Seconds (HERMAN WALKER) Blood Pressure Mean: 102 Progress Note : Time: 15:05 Progress Note Patient seen and evaluated by me, 47-year-old with a feeling of generalized weakness and feeling "cold" x 1 week. Patient has had multiple prior ER visits for similar complaints. History of hypothyroidism on thyroid replacement. Patient denies any antecedent illness. She is complaining of some hair loss at the bitemporal forehead. No diarrhea or constipation. Is not short of breath, no chest pain. No palpitations. Last time she saw her primary care nurse practitioner was June 2022. No follow-up since. Has not contacted her PCP regarding these symptoms x1 week. Evaluation today includes physical exam and COVID test. Physical exam is unremarkable, (she is holding the right restorationism and denies JACKSON - but states "fullness"). Heent WNL; normal CV/lung exam. Abd benign. vital signs are stable. Patient is alert and oriented in no acute distress. Patient has no clinical or objective findings today concerning for hyperthyroidism/thyroid storm or myxedema. COVID test is negative. Recommendations to patient to follow-up with her primary care provider as far as thyroid management and evaluation. Supportive care. No clinical or objective findings to warrant further testing from the emergency department. Patient did seem upset that no further testing was performed, however the patient had no specific system related complaints other than feeling "cold" and arms feeling "heavy". HR not bradycardic - rate of 70's. I had no other testing that would be reasonable to perform that would explain her symptoms. 1517 Patient's discharge papers printed, the nurse attempted to give them to the patient but she walked out of the department, stating "shame on her" (about me) as she left. (CAMRYN VILLAVICENCIO MD) Departure Impression Primary Impression: Generalized weakness Disposition: 01 HOME, SELF-CARE Condition: Stable Departure-Patient Inst. Decision time for Depature: 15:08 (CAMRYN VILLAVICENCIO MD) Referrals: JYOTI JAMISON (PCP/Family) Primary Care Physician Patient Instructions: Weakness ED Add. Discharge Instructions: Continue your daily medications as prescribed by your primary care provider. You will need to follow up with her for further evaluation of your thyroid function. Drink plenty of fluids to stay well-hydrated. If you develop a fever, shortness of breath, vomiting or any other emergent, co ncerning symptoms please return to the emergency department for reevaluation. Verification and Attestation of Medical Student E/M Service A medical student performed and documented this service in my presence. I reviewed and verified all information documented by the medical student and made modifications to such information, when appropriate. I personally performed the physical exam and medical decision making. Camryn Villavicencio Feb 10, 2023,15:08 (CAMRYN VILLAVICENCIO MD) HERMAN WALKER Feb 10, 2023 14:19 CAMRYN VILLAVICENCIO MD Feb 10, 2023 15:10
== END 2023-02-10 15:13 | disposition home or self-care (01) ==
LOC: EDUNIT# 13:21 → ER 13:26
DX: R53.1 Weakness (principal); Z86.16 Personal history of COVID-19; Z20.822 Contact with and (suspected) exposure to COVID-19
CPT/HCPCS: 87636; 99283